=== PATIENT | female | born 1970 | race Caucasian/White ===

== ENCOUNTER 2016-11-05 17:36 | Inpatient (IN) | payer OTHER ==
[~2016-11-05] VITALS: Ht 167.6 cm; Wt 79.4 kg
--- NOTE | ~2016-11-05 | HP ---
Unit #: [id number] #: [id number] Patient: NATASHA DE LA ROSA [id number] [place] [address] [id number] MR#: [id number] NAME: NATASHA DE LA ROSA. ROOM: P204 Age: 45 Sex: F Admission Date: 11/05/2016 : 1970 Attending Physician: Jerry Mireles M.D. Admitting Physician: Jerry Mireles M.D. Primary Care Physician: Primary Care Physician No HISTORY AND PHYSICAL HISTORY OF PRESENT ILLNESS is a 45 year old admitted to [address] [place] [address] with depression and increased anxiety. PAST MEDICAL HISTORY 1. History of polysubstance abuse to includes opioids, methamphetamine and heroin. 2. GERD. 3. Irritable bowel syndrome. PAST SURGICAL HISTORY 1. Hysterectomy. 2. Bladder sling. ALLERGIES No known drug allergies. SOCIAL HISTORY Smokes less than one-half pack per day. Drinks alcohol rarely. Admits to a history of illicit substance abuse to include opioids, methamphetamine and heroin. FAMILY HISTORY Medically noncontributory. REVIEW OF SYSTEMS CONSTITUTIONAL: No fever or chills. HEENT: Denies any sore throat, ear pain or runny nose. CARDIOVASCULAR: Denies chest pain, irregular heart rhythm or palpitations. CHEST: Denies shortness of breath or cough. No hemoptysis. GASTROINTESTINAL: Denies nausea, vomiting, diarrhea or chronic constipation. ENDOCRINE: Denies history of increased thirst or urination. No recent significant weight loss or gain. GENITOURINARY: Denies dysuria, frequency, or hematuria. SKIN: Denies any rashes. HEMATOLOGIC: Denies history of increased bleeding or bruising. MUSCULOSKELETAL: Denies any hot, swollen joints. No generalized muscle pain. NEUROLOGIC: Denies problems with vision or speech. No frequent, severe headaches. No numbness, tingling or weakness in any extremities. Denies loss of bladder or bowel control. Unit #: [id number] #: [id number] Patient: NATASHA DE LA ROSA CURRENT MEDICATIONS 1. Lexapro 10 mg q day. 2. Melatonin 6 mg q.h.s. p.r.n. 3. Milk of Magnesia p.r.n. 4. Maalox p.r.n. 5. Tylenol p.r.n. 6. Nicotine patch 14 mg q day. PHYSICAL EXAMINATION GENERAL: Alert, well-nourished, in no apparent distress. VITAL SIGNS: Blood pressure 114/74, heart rate 80, respirations 16, temperature 98.6. WEIGHT: 175. HEIGHT: 5 foot 6 inches. SKIN: Warm and dry without rash or lesion. HEENT: Normocephalic. TMs not viewed. Oral and nasal passages clear. Conjunctivae clear. Pupils equal, round and reactive to light and accommodation. Extraocular movements intact. NECK: Supple without lymphadenopathy or thyromegaly. HEART: Regular rate and rhythm without murmur. LUNGS: Clear. ABDOMEN: Soft, nontender. : Not done. EXTREMITIES: No evidence of cyanosis, clubbing or edema. Moves all extremities without focal deficit. NEUROLOGICAL: Grossly within normal limits. Cranial Nerves: II: Visual sue are intact. III, IV AND : Extraocular movements are intact. Pupils are equal, round and reactive to light. V: Facial sensation is grossly normal. VII: Facial movements and expression are normal. VIII: Auditory acuity grossly intact. IX, X: Uvula is midline. Phonation is normal. XI: Patient shrugs shoulders and turns head normally. XII: Tongue protrudes in the midline. Sensory and Motor Function: Sensory and motor sensation is grossly normal. Motor: moves all extremities well. Coordination: Gait is normal. Deep Tendon Reflexes: Intact. IMPRESSION Psychiatric admission. RECOMMENDATIONS PSYCHIATRIC: Per psychiatrist. MEDICAL: I see no contraindications to participating in facility's activities. MEDICAL PROGNOSIS Good. MEDICAL CONDITION Stable. Dictated by... Unit #: [id number] #: [id number] Patient: NATASHA DE LA ROSA Iona Jeong P.A.-C. for Blade Mcnally/katya TD: 11/06/2016 20:53 JOB #: [id number] HISTORY AND PHYSICAL Page 1 of 1 X Iona Jeong HISTORY AND PHYSICAL
--- NOTE | ~2016-11-05 | DS ---
Unit #: [id number] #: [id number] Patient: NATASHA DE LA ROSA [id number] [place] [address] [id number] MR#: [id number] NAME: NATASHA DE LA ROSA. ROOM: [facility] Age: 45 Sex: F Admission Date: 11/05/2016 : 1970 Discharge Date: 11/07/2016 Attending Physician: Jerry Mireles M.D. Primary Care Physician: Primary Care Physician No DISCHARGE SUMMARY REASON FOR ADMISSION The patient is a 45-year-old white female admitted with a history of depressed mood and abuse of opioids, Methamphetamines, and heroin. HOSPITAL COURSE The patient was admitted to the [address] [place] [address] Unit but transferred to the [address] [place] [address] Unit given her extensive substance abuse history. She actively participated within the therapeutic milieu given her complaints of depressed mood. She was begun on Lexapro 10 mg daily which she tolerated without complaint. By 11/09/2016, the patient was in bright spirts and agreeable with plan for followup in the intensive outpatient program provided by this facility, and discharge was ordered. FINAL DIAGNOSES 1. Dysthymic disorder. 2. Opioid use disorder. 3. Methamphetamine use disorder. 4. Alcohol use disorder. 5. History of hysterectomy. 6. Irritable bowel syndrome. 7. Gastroesophageal reflux disease. DISPOSITION ON DISCHARGE The patient was discharged on the following medications: 1. Lexapro 10 mg daily for depression. DIET AND ACTIVITY No dietary or physical restrictions placed on the patient at the time of discharge. FOLLOWUP He will follow in the intensive outpatient program provided by this facility. PROGNOSIS Considered fair. Dictated by... Jerry Mireles M.D. GOYO/jose juan Unit #: [id number] #: [id number] Patient: NATASHA DE LA ROSA TD: 11/08/2016 14:12 JOB #: [id number] DISCHARGE SUMMARY Page 1 of 1 X Jerry Mireles MD X DISCHARGE SUMMARY
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
--- NOTE | ~2016-11-05 | PN ---
Unit #: [id number] #: [id number] Patient: NATASHA DE LA ROSA [id number] [facility] [address] [place] [address] [id number] I MR#: [id number] NAME: NATASHA DE LA ROSA ROOM: P204 Age: 45 Sex: F Admission Date: 11/05/2016 : 1970 Attending Physician: Jerry Mireles M.D. Admitting Physician: Jerry Mireles M.D. Primary Care Physician: Primary Care Physician Nicolle SPANN PROGRESS NOTES DATE 11/07/2016 DISCUSSION The patient offers no information today. She has been moved to the [address] [place] [address] Unit and is now actively participating within the therapeutic milieu. Should she sustain progress, discharge will likely take place tomorrow. Dictated by... Jerry Mireles M.D. CB/jose juan TD: 11/07/2016 14:35 JOB #: [id number] MARIA INES PROGRESS NOTES Page 1 of 1 X Jerry Mireles MD X PROGRESS NOTE
[~2016-11-05 17:36] MED LIST: ALBUTEROL17 GM INH; AMOXICILLIN875 MG PO; BACLOFEN10 MG; BENTYL20 MG; BENTYL20 MG PO; BENZONATATE PO; CALCIUM PO; CALTRATE PLUS T1 TAB PO; CIPRO PO; CIPRO XR 500 M500 MG PO; CLIMARA 0.050.05 MG; LORTAB 101 TAB 10/5; LORTAB PO; MACROBID100 M1 PO; MUCINEX PO; NORFLEX100 MG PO; OMEPRAZOLE10 M1; OMEPRAZOLE20 M1 PO; PRILOSEC PO; PRILOSEC20 MG; PROTONIX PO; PYRIDIUM PO; TESSALON200 MG PO; VIVELLE-DO.0375 MG/2 TOP; [UNRECOGNIZED DRUG - OTHER] PO
[2016-11-06 09:31] LABS: BASOPHIL# 0.1 X10e3 (0-0.3); BASOPHIL% 1.1 % (0-2.5); EOSINOPHIL# 0.4 X10e3 (0-0.7); EOSINOPHIL% 3.3 % (0.0-7.0); HEMATOCRIT 46.8 % (35.0-45.0); HEMOGLOBIN 16.5 gm/dL (12.0-16.0); LYMPHOCYTE# 2.9 X10e3 (1.0-3.5); LYMPHOCYTE% 26.6 % (17.0-45.0); MEAN CELL VOLUME 86.6 FL (83-96); MEAN CORPUSCULAR HEMOGLOBIN 30.6 PG (28-34); MEAN CORPUSCULAR HGB CONC 35.4 g/dL (30-36); MEAN PLATELET VOLUME 8.7 FL (6.5-11.5); MONOCYTE# 1.2 X10e3 (0-1.0); MONOCYTE% 10.7 % (3.0-12.0); NEUTROPHIL# 6.4 X10e3 (1.5-7.1); NEUTROPHIL% 58.3 % (40-75); PLATELET COUNT 531 X10e3 (140-420); RED CELL DISTRIBUTION WIDTH 13.6 % (11.0-15.5)
[2016-11-06 09:37] LABS: DIFF IND NO
[2016-11-06 10:10] LABS: ALBUMIN SERUM 4.4 g/dL (3.5-5.0); BILIRUBIN,TOTAL 0.5 mg/dL (0.2-2.0); CREATININE SERUM 0.6 mg/dL (0.6-1.4); GLOM FILT RATE Estimated 110.9 mL/min (>60); POTASSIUM 4.7 mmol/L (3.5-5.1)
[2016-11-07 09:53] LABS: URINE APPEARANCE CLEAR; URINE BILIRUBIN NEG (NEG); URINE BLOOD TRACE (NEG); URINE COLOR YELLOW; URINE GLUCOSE NEG (NEG); URINE KETONE NEG (NEG); URINE LEUKOCYTE ESTERASE NEG (NEG); URINE NITRATE NEG (NEG); URINE PROTEIN NEG (NEG)
[2016-11-07 09:56] LABS: URINE BACTERIA AUWI NEG (NEGATIVE); URINE SQUAMOUS EPITHELIAL CELL OCC /[HPF]; UWBCS1 AUWI 0-2 (0-5)
[2016-11-07 10:10] LABS: AMPHETAMINE NEG (NEG); BARBITURATES NEG (NEG); BENZODIAZEPINES POS (NEG); COCAINE NEG (NEG); MARIJUANA POS (NEG); OPIATES NEG (NEG); TRICYCLIC ANTIDEPRESSANTS NEG (NEG); U METHADONE NEG (NEG)
[2016-11-07 10:48] LABS: URINE AMORPHOUS SEDIMENT AMORP PHOSPHATES; URINE CRYSTALS CALCIUM OXALATE /[HPF]; URINE MUCUS PRESENT; URINE YEAST PRESENT
== END 2016-11-08 14:50 | DRG 897 ==
LOC: P2L 19:41 → P2S 11-06 18:11
PROVIDERS: Specialist
DX: F15.24 Other stimulant dependence with stimulant-induced mood disorder (principal); F10.10 Alcohol abuse, uncomplicated; R45.851 Suicidal ideations; F34.1 Dysthymic disorder; K58.9 Irritable bowel syndrome, unspecified; K21.9 Gastro-esophageal reflux disease without esophagitis; Z90.710 Acquired absence of both cervix and uterus; F17.210 Nicotine dependence, cigarettes, uncomplicated
CPT/HCPCS: 80053; 80307; 81003; 84703; 85025

== ENCOUNTER 2016-12-02 02:13 | Emergency (ER) | payer OTHER ==
[~2016-12-02] VITALS: Ht 167.6 cm; Wt 74.8 kg
--- NOTE | ~2016-12-02 | CT4 ---
[facility] RADIOLOGY TEXT RESULTS PATIENT: NATASHA DE LA ROSA LOCATION: [facility] : 72 UNIT #: [id number] AGE: [address]: Casa Corrales MD SEX: F ORDER DR: [id number] [address] [address] [id number] MR#: [id number] Acc #: [id number] NAME: NATASHA DE LA ROSA. : 1970 SEX: F STUDY DATE/TIME: 12/02/2016 4:57 UNIT: [id number] ROOM: STUDY DESCRIPTION: CT Abd and Pelv Wo Cont Attending Physician: Casa Corrales M.D. Ordering Physician: Casa Corrales M.D. Primary Care Physician: Primary Care Physician No MEDICAL IMAGING REPORT This report is preliminary unless electronic signature is present EXAM CT abdomen and pelvis without contrast INDICATION Rectal, pelvic and right lower quadrant abdominal pain since yesterday. PROCEDURE Unenhanced CT of the abdomen and pelvis. This CT examination was performed with one or more of the following radiation dose reduction techniques: automatic exposure control, adjustment of mA and/or kV according to patient size, and iterative reconstruction. COMPARISON 08/01/2015. FINDINGS ABDOMEN WITHOUT CONTRAST: The included lung bases are clear. The liver is unremarkable. Previous splenectomy. The adrenal glands, pancreas, gallbladder have an unremarkable unenhanced appearance. Bowel loops are nondilated. Sigmoid diverticula with stranding around the distal sigmoid colon. No evidence for abscess or perforation. PELVIS WITHOUT CONTRAST: Previous hysterectomy. No pelvic mass or fluid. No aggressive appearing bone lesion. IMPRESSION Acute diverticulitis in the distal sigmoid colon. No evidence for abscess or perforation. Dictated by... [facility] RADIOLOGY TEXT RESULTS PATIENT: NATASHA DE LA ROSA LOCATION: [facility] : 72 UNIT #: [id number] AGE: [address]: Casa Corrales MD SEX: F ORDER DR: Bienvenido Carrera M.D. THIS IS AN ELECTRONICALLY VERIFIED REPORT Bienvenido Carrera M.D. at 12/02/2016 10:01 PM FATOU/arturo TD: 12/02/2016 08:49 JOB #: [id number] MEDICAL IMAGING REPORT Page 1 of 1 COPY
[2016-12-02 03:33] LABS: URINE SOURCE CLEAN CATCH
[2016-12-02 03:39] LABS: URINE APPEARANCE CLEAR; URINE BILIRUBIN NEG (NEG); URINE BLOOD TRACE (NEG); URINE COLOR YELLOW; URINE GLUCOSE NEG (NEG); URINE KETONE TRACE (NEG); URINE LEUKOCYTE ESTERASE NEG (NEG); URINE NITRATE NEG (NEG); URINE PH 6.5 (5-8); URINE PROTEIN NEG (NEG); URINE SPECIFIC GRAVITY 1.023 (1.003-1.035)
[2016-12-02 03:42] LABS: URINE BACTERIA AUWI NEG (NEGATIVE); URINE SQUAMOUS EPITHELIAL CELL NONE SEEN /[HPF]; UWBCS1 AUWI 0-2 (0-5)
[2016-12-02 03:45] LABS: CULTURE INDICATED? NO
[2016-12-02 04:00] LABS: ALBUMIN SERUM 4.1 g/dL (3.5-5.0); BILIRUBIN, DIRECT 0.1 mg/dL (0.0-0.2); BILIRUBIN,INDIRECT 0.7 mg/dL (0.0-0.9); BILIRUBIN,TOTAL 0.8 mg/dL (0.2-2.0); BUN/CREATININE RATIO 21.42; CREATININE SERUM 0.7 mg/dL (0.6-1.4); GLOM FILT RATE Estimated 105.4 mL/min (>60); POTASSIUM 3.8 mmol/L (3.5-5.1); PROTEIN TOTAL SERUM 6.8 g/dL (6.0-8.3)
[2016-12-02 04:09] LABS: BASOPHIL# 0.7 X10e3 (0-0.3); BASOPHIL% 3.7 % (0-2.5); DIFF IND YES; EOSINOPHIL# 0.2 X10e3 (0-0.7); EOSINOPHIL% 0.8 % (0.0-7.0); HEMATOCRIT 40.7 % (35.0-45.0); HEMOGLOBIN 14.5 gm/dL (12.0-16.0); LYMPHOCYTE# 3.3 X10e3 (1.0-3.5); LYMPHOCYTE% 16.9 % (17.0-45.0); MEAN CELL VOLUME 86.4 FL (83-96); MEAN CORPUSCULAR HEMOGLOBIN 30.9 PG (28-34); MEAN CORPUSCULAR HGB CONC 35.7 g/dL (30-36); MEAN PLATELET VOLUME 8.7 FL (6.5-11.5); MONOCYTE# 2.2 X10e3 (0-1.0); MONOCYTE% 11.3 % (3.0-12.0); NEUTROPHIL% 67.3 % (40-75); PLATELET COUNT 507 X10e3 (140-420); RED BLOOD COUNT 4.71 X10e (3.90-5.30); RED CELL DISTRIBUTION WIDTH 14.3 % (11.0-15.5); WHITE BLOOD COUNT 19.4 X10e3 (4.0-10.5)
[2016-12-02 04:50] LABS: PLATELET ESTIMATE INCREASED (NORMAL)
[2016-12-02 04:51] LABS: AMPHETAMINE NEG (NEG); ANISOCYTOSIS MOD; BARBITURATES NEG (NEG); BENZODIAZEPINES NEG (NEG); COCAINE NEG (NEG); MARIJUANA POS (NEG); OPIATES NEG (NEG); POIKILOCYTOSIS MOD; ROULEAUX SLIGHT; TRICYCLIC ANTIDEPRESSANTS NEG (NEG); U METHADONE NEG (NEG)
[2016-12-04 21:28] LABS: CHLAMYDIA TRACH Not Detected (Not Detected); N GONOR Not Detected (Not Detected)
== END 2016-12-02 05:41 | disposition home or self-care (01) ==
LOC: CED 02:13
PROVIDERS: Emergency Medicine
DX: K57.32 Diverticulitis of large intestine without perforation or abscess without bleeding (principal); B37.9 Candidiasis, unspecified; K58.9 Irritable bowel syndrome, unspecified; Z90.49 Acquired absence of other specified parts of digestive tract; Z90.710 Acquired absence of both cervix and uterus; F17.200 Nicotine dependence, unspecified, uncomplicated; Z79.899 Other long term (current) drug therapy
CPT/HCPCS: 36415; 74176; 80048; 80076; 80307; 81003; 84703; 85025; 87491; 87591; 87808; 87905; 99284